=== PATIENT | female | born 1950 | race American Indian/Alaskan Native ===

== ENCOUNTER 2020-06-20 00:55 | Emergency (ER) | payer MEDICARE ==
[2020-06-20] MEDS ORDERED: ASPIRIN 81 MG TAB CHEW PO ONE (03:04)
--- NOTE | 2020-06-20 03:11 | Event Note ---
ED Screening Note Date of service: 06/20/20 Time: 03:08 ED Screening Note: This initial assessment/diagnostic orders/clinical plan/treatment(s) is/are subject to change based on patients health status, clinical progression and re- assessment by fellow clinical providers in the ED. Further treatment and workup at subsequent clinical providers discretion. Patient/guardian urged not to elope from the ED as their condition may be serious if not clinically assessed and managed. Initial orders include: 70-year-old female presents to the emergency room with complaint of indigestion and burning sensation to the center of her chest x3 nights when she lays down to go to bed. She states that the indigestion last most of the night and keeps her up. She denies any diaphoresis or any radiation to her left arm or jaw. Patient reports a history of acid reflux she takes Protonix daily for the acid reflux she denies any nausea and vomiting and no other complaints. She is awake alert and oriented in no apparent distress stat EKG done and appears to be normal sinus rhythm with no acute findings.
[2020-06-20 03:33] LABS: Hematocrit 46.3 % (30.3-42.9); Hemoglobin 15.7 gm/dl (10.1-14.3); Mean Corpuscular HGB Conc 34 % (30-34); Mean Corpuscular Volume 90 fl (79-97); Platelet Count 345 K/mm3 (140-440); Red Blood Count 5.16 M/mm3 (3.65-5.03); Red Cell Distribution Width 12.8 % (13.2-15.2)
--- NOTE | 2020-06-20 03:39 | XRay Report ---
CHEST 2 VIEWS INDICATION / CLINICAL INFORMATION: CHEST PAIN. COMPARISON: None available. FINDINGS: SUPPORT DEVICES: None. HEART / MEDIASTINUM: No significant abnormality. LUNGS / PLEURA: No significant pulmonary or pleural abnormality. No pneumothorax. ADDITIONAL FINDINGS: No significant additional findings. IMPRESSION: 1. No acute findings. Signer Name: Vicente Jolly MD Signed: 06/20/2020 3:34 AM Workstation Name: [id number]
[2020-06-20 03:49] LABS: Blood Urea Nitrogen 18 mg/dL (7-17); Calcium 9.4 mg/dL (8.4-10.2); Hemolysis Index 9
[2020-06-20 03:51] LABS: BUN/Creatinine Ratio 30
[2020-06-20 08:14] VITALS: BP 147/85
--- NOTE | 2020-06-20 08:57 | Emergency Department Report ---
ED Chest Pain HPI - General Chief Complaint: Arrhythmia/Palpitations Stated Complaint: CHEST PAIN Time Seen by Provider: 06/20/20 07:40 Source: patient, old records reviewed (No previous medical record in [facility]) Mode of arrival: Ambulatory Limitations: No Limitations - History of Present Illness Initial Comments: 70-year-old female the past medical history GERD, hypertension and elevated cholesterol presents to the hospital with complaints of symptoms of indigestion for the last 3-4 nights. Patient states symptoms are is worse when lying supine. She has a fullness sensation in her epigastric area, decreased belching, metallic taste in her mouth, and occasional burning in her chest. She denies exertional chest pain. patient was diagnosed with elevated cholesterol 1 week ago and started Lipitor. She was concerned that she might be having a heart attack because the Lipitor pamphlet stated that plaques due to cholesterol can rupture and cause heart attacks. Patient has a longstanding history of GERD and has been on a PPI once a day for several years. She also has had previous endoscopy. She denies melena, hematochezia, nausea, vomiting, or dyspnea with "indigestion" episodes. She reports her last stress test was greater than 10 years ago. Positive family history of CAD (grandparent with CAD prior to 65 however, not parents or siblings) but patient does not smoke cigarettes. Patient does take aspirin 81 mg daily. Patient is currently pain-free PMD: Moya Severity scale (0 -10): 0 - Related Data Allergies Allergy/AdvReac Type Severity Reaction Status Date / Time codeine Allergy Hives Verified 06/20/20 03:14 morphine Allergy Itching Verified 06/20/20 03:15 Heart Score - HEART Score History: Slightly suspicious EKG: Normal Age: > 65 Risk factors: 1-2 risk factors Troponin: < normal limit HEART Score: 3 ED Review of Systems ROS: Stated complaint: CHEST PAIN Other details as noted in HPI Comment: All other systems reviewed and negative ED Past Medical Hx - Past Medical History Previous Medical History?: Yes Hx Hypertension: Yes Additional medical history: High cholesterol - Surgical History Past Surgical History?: No - Social History Smoking Status: Never Smoker Substance Use Type: None ED Physical Exam - General Limitations: No Limitations - Other Other exam information: General: No acute distress Head: Atraumatic Eyes: normal appearance ENT: Moist mucous membranes Neck: Normal appearance, no midline tenderness Chest: Clear to auscultation bilaterally CV: Regular rate and rhythm Abdomen: Soft, normal bowel sounds, mild epigastric tender discomfort with palpation, nondistended, no rebound or guarding Back: Normal inspection Extremity: Normal inspection, full range of motion Neuro: Alert O x 3, no facial asymmetry, speech clear, no gross motor sensory deficit Psych: Appropriate behavior Skin: No rash ED Course Vital Signs 06/20/20 06/20/20 02:56 08:14 Temperature 97.9 F 97.7 F Pulse Rate 78 90 Respiratory 18 17 Rate Blood Pressure 161/83 Blood Pressure 147/85 [Left] O2 Sat by Pulse 100 100 Oximetry ADONAY score - Adonay Score Age > 65: (1) Yes Aspirin use within the Past 7 Days: (1) Yes 3 or more CAD Risk Factors: (0) No 2 or more Angina events in past 24 hrs: (0) No Known CAD with more than 50% Stenosis: (0) No Elevated Cardiac Markers: (0) No ST Deviation Greater than 0.5mm: (0) No ADONAY Score: 2 ED Medical Decision Making - Lab Data Result diagrams: 06/20/20 03:09 06/20/20 03:09 Lab Results 06/20/20 06/20/20 06/20/20 Range/Units 03:09 03:09 07:40 WBC 12.1 H (4.5-11.0) K/mm3 RBC 5.16 H (3.65-5.03) M/mm3 Hgb 15.7 H (10.1-14.3) gm/dl Hct 46.3 H (30.3-42.9) % MCV 90 (79-97) fl MCH 31 (28-32) pg MCHC 34 (30-34) % RDW 12.8 L (13.2-15.2) % Plt Count 345 (140-440) K/mm3 Sodium 141 (137-145) mmol/L Potassium 4.7 (3.6-5.0) mmol/L Chloride 104.4 (98-107) mmol/L Carbon Dioxide 24 (22-30) mmol/L Anion Gap 17 mmol/L BUN 18 H (7-17) mg/dL Creatinine 0.6 (0.6-1.2) mg/dL Estimated GFR > 60 ml/min BUN/Creatinine Ratio 30 % Glucose 104 H (65-100) mg/dL Calcium 9.4 (8.4-10.2) mg/dL Troponin T < 0.010 < 0.010 (0.00-0.029) ng/mL - EKG Data -: EKG Interpreted by Me EKG shows normal: sinus rhythm, ST-T waves (no stemi) Rate: normal - EKG Data When compared to previous EKG there are: previous EKG unavailable 06/20/20 08:59 Repeat EKG performed in the ED without acute changes - Radiology Data Radiology results: report reviewed Chest x-ray: No acute findings - Medical Decision Making Patient presents to the hospital with symptoms of reflux as indigestion. Patient's pain is atypical and pain-free during ED stay. EKG normal x2 with negative troponin x2. Case discussed with [place] doctor and patient will be discharged home with outpatient follow-up to schedule outpatient stress testing. Patient encouraged to take Maalox as needed in addition to her PPI. Critical Care Time: No Critical care attestation.: If time is entered above; I have spent that time in minutes in the direct care of this critically ill patient, excluding procedure time. ED Disposition Clinical Impression: GERD (gastroesophageal reflux disease) Disposition: DC-01 TO HOME OR SELFCARE Is pt being admited?: No Does the pt Need Aspirin: No Condition: Stable Instructions: Indigestion, Hidb-bf-Aciv Additional Instructions: Take the medication as prescribed. Follow-up with your doctor or doctor/clinic provided. Return if symptoms worsen as indicated by your discharge instructions. Referrals: ROLO MARCH MD [Primary Care Provider] - 3-5 Days MD Jose [Other] - 06/22/20 10:20 am Time of Disposition: 09:52
== END 2020-06-20 10:01 | disposition home or self-care (01) ==
LOC: ED 00:55
DX: K21.9 Gastro-esophageal reflux disease without esophagitis (principal); I10 Essential (primary) hypertension; Z88.8 Allergy status to other drugs, medicaments and biological substances
CPT/HCPCS: 36415; 71046; 80048; 84484; 85027; 93005